=== PATIENT | female | born 1965 | race Caucasian/White ===

== ENCOUNTER 2017-03-10 09:08 | Day surgery (SDC) | payer OTHER ==
[~2017-03-10 09:08] MED LIST: LIDOCAINE HCL 1% MPF SOL ONE; PROPOFOL 500 MG/50 ML EMU IV ONE
[2017-03-10 10:34] VITALS: O2SAT 97
[2017-03-10 10:54] VITALS: BP 145/66; PULSE 65; RESP 18; TEMP 97.4
== END 2017-03-10 11:20 | disposition home or self-care (01) | DRG 951 ==
LOC: SURG 09:08
PROVIDERS: ATTEND Surgery
DX: Z12.11 Encounter for screening for malignant neoplasm of colon (principal); D12.3 Benign neoplasm of transverse colon; K57.30 Diverticulosis of large intestine without perforation or abscess without bleeding; K63.5 Polyp of colon; D12.8 Benign neoplasm of rectum; K62.1 Rectal polyp
CPT/HCPCS: J2001; J2704